=== PATIENT | male | born 1975 | race Caucasian/White ===

== ENCOUNTER 2019-03-25 10:01 | Emergency (ER) | payer MEDICAID ==
[~2019-03-25] VITALS: Wt 102.0 kg
--- NOTE | 2019-03-25 13:20 | ERD ---
ER Documentation Chief Complaint Chief Complaint SOB WITH INTERMITTENT CHEST PAIN FOR 1 WK. NO RELEIF WITH INHALER. NO N/V HPI 43-year-old male presents to the ED complaining of chest pain. Patient reports a one-month history of unprovoked, episodes of sharp, nonradiating midsternal chest pain with shortness of breath and sometimes palpitations. No accompanying nausea, vomiting or diaphoresis. Denies leg pain or swelling. No cough or hemoptysis. Episodes seem to be increasing in frequency recently. Currently asymptomatic. No abdominal pain or low back pain. Admits to increasing episodes of anxiety recently but denies depression or thoughts of self-harm. No headache or neck pain. No fevers or chills. ROS All systems reviewed and are negative except as per history of present illness. Medications Home Meds No Active Prescriptions or Reported Meds Allergies Allergies: Coded Allergies: No Known Allergy (Unverified , 03/25/19) PMhx/Soc History of Surgery: No Hx Neurological Disorder: No Hx Respiratory Disorders: No Hx Cardiac Disorders: No Hx Psychiatric Problems: No Hx Miscellaneous Medical Probl: No Hx Alcohol Use: No Hx Substance Use: No Hx Tobacco Use: No FmHx No coronary artery disease or sudden cardiac Physical Exam Vitals Vital Signs Date Temp Pulse Resp B/P (MAP) Pulse Ox O2 O2 Flow FiO2 Time Delivery Rate 03/25/19 57 12 101/57 97 Room Air 19:30 (72) 03/25/19 68 15 120/62 100 Room Air 19:00 (81) 03/25/19 50 12 108/69 98 Room Air 18:00 (82) 03/25/19 54 18 101/56 98 Room Air 17:00 (71) 03/25/19 98.5 58 20 102/75 95 Room Air 15:00 (84) 03/25/19 Nasal 13:37 Cannula 03/25/19 98.5 74 20 112/61 98 10:04 (78) Physical Exam Const: Anxious, no acute distress Head: Atraumatic Eyes: Normal Conjunctiva ENT: Normal External Ears, Nose and Mouth. Neck: Full range of motion. No JVD. No goiter. Resp: Breath sounds are equal and clear to auscultation bilaterally Cardio: Regular rate and rhythm, no murmurs. Chest Wall: Nontender Abd: Soft, non tender, non distended. No rebound or guarding. No masses or abnormal pulsations. Normal bowel sounds Skin: No petechiae or rashes Back: No midline or flank tenderness Ext: No cyanosis, or edema. Pulses 4+ in all extremities. Neur: Awake and alert. No focal deficit Psych: Anxious but not depressed. Result Diagram: 03/25/19 1338 03/25/19 1338 Results 24 hrs Laboratory Tests Test 03/25/19 13:38 03/25/19 18:14 White Blood Count 6.2 10^3/ul Red Blood Count 4.53 10^6/ul Hemoglobin 14.2 g/dl Hematocrit 39.4 % Mean Corpuscular Volume 87.0 fl Mean Corpuscular Hemoglobin 31.3 pg Mean Corpuscular Hemoglobin Concent 36.0 g/dl Red Cell Distribution Width 12.7 % Platelet Count 186 10^3/UL Mean Platelet Volume 12.5 fl Immature Granulocytes % 0.300 % Neutrophils % 59.6 % Lymphocytes % 28.0 % Monocytes % 9.2 % Eosinophils % 2.6 % Basophils % 0.3 % Nucleated Red Blood Cells % 0.0 /100WBC Immature Granulocytes # 0.020 10^3/ul Neutrophils # 3.7 10^3/ul Lymphocytes # 1.7 10^3/ul Monocytes # 0.6 10^3/ul Eosinophils # 0.2 10^3/ul Basophils # 0.0 10^3/ul Nucleated Red Blood Cells # 0.0 10^3/ul D-Dimer 252.00 ng/ml D-Dimer Comment Sodium Level 144 mmol/L Potassium Level 4.1 mmol/L Chloride Level 109 mmol/L Carbon Dioxide Level 23 mmol/L Anion Gap 12 Blood Urea Nitrogen 19 mg/dl Creatinine 1.07 mg/dl Est Glomerular Filtrat Rate mL/min > 60 mL/min Glucose Level 90 mg/dl Calcium Level 9.5 mg/dl Troponin I < 0.012 ng/ml < 0.012 ng/ml Current Medications Medications Dose Sig/Denisa Start Time Status Last (Trade) Ordered Route PRN Stop Time Admin Dose Reason Admin Aspirin 325 mg ONCE STAT 03/25/19 DC 03/25/19 (Aspirin) PO 13:32 13:49 03/25/19 13:34 25 tab STK-MED 03/25/19 DC Nitroglycerin ONCE .ROUTE 13:45 03/25/19 13:46 (Nitroglyceri n (Sl Tab) 0.4 Mg) 1 tab ONCE STAT 03/25/19 DC 03/25/19 Nitroglycerin SL 13:46 13:50 03/25/19 13:50 (Nitroglyceri n (Sl Tab) 0.4 Mg) Procedures/MDM DOCUMENTS REVIEWED: ED nurse, no prior records EKG: Time: 10:08 Sinus rhythm. Ventricular rate 72. Normal [place] QRS. ST chidi nges consistent with early repolarization. Normal axis. No ectopy. My Interpretation EKG: Time: 13:88. Sinus rhythm. Ventricular rate 52. Normal [place] QRS. ST changes consistent with early repolarization. Normal axis. No ectopy. My Interpretation IMAGING: Chest AP portable. Cardiac silhouette is normal. The costophrenic angles are clear. No effusions or infiltrates. No abnormalities of the bony thorax. My interpretation. Observation Note: Time: 5 hours Family Hx: No Hypertension Evaluation: Multiple exams showed improving symptoms and no evidence of acute coronary syndrome MEDICAL DECISION MAKIN-year-old male with no significant prior medical history presents to the ED complaining of chest pain. CBC to evaluate for leukocytosis and anemia is unremarkable. Chemistry is negative for electrolyte abnormalities, renal insufficiency or hyperglycemia. Troponin x2 is negative. EKG x2 significant for findings consistent with early repolarization but no acute ischemia or dysrhythmia. Chest x-ray is negative for infiltrate or effusion. The patient presents with chest pain and I considered pulmonary embolism, aortic dissection, pneumothorax among other diagnoses. Patient also admits to anxiety which may be a contributing or causative factor. Evaluation f or acute coronary syndrome was performed. The HEART score was utilized for risk stratification and found < 3. Repeat EKG and troponin @ 3 hours were unchanged. Based on this evaluation the patients risk of major adverse cardiac events is <1%. D-dimer is negative and patient at low risk for pulmonary embolism. Shared decision making occurred with patient and the decision has been made to discharge the patient for outpatient evaluation and functional study within 72 hours. Stable for discharge with precautionary instructions and outpatient follow-up as counseled. Counseled patient and family regarding diagnosis, diagnostic results and need for follow-up. Understands return to the ED if symptoms recur, worsen or any other concerns. Departure Diagnosis: Primary Impression: Chest pain Chest pain type: unspecified Qualified Codes: R07.9 - Chest pain, unspecified Additional Impression: Anxiety Condition: Stable ANAM ROY MD Mar 25, 2019 13:20
[2019-03-25] MEDS ORDERED: ASPIRIN 325 MG TAB PO STA (13:32)
[2019-03-25] MEDS ORDERED: NITROGLYCERIN (SL) 0.4 MG TAB ONE (13:45)
[2019-03-25] MEDS ORDERED: NITROGLYCERIN (SL) 0.4 MG TAB SL STA (13:46)
[2019-03-25 19:30] VITALS: BP 101/57; PULSE 57; RESP 12
== END 2019-03-25 19:43 | disposition home or self-care (01) ==
LOC: E/R 10:01
DX: R07.9 Chest pain, unspecified (principal); F41.9 Anxiety disorder, unspecified
CPT/HCPCS: 36415; 71045; 80048; 82550; 82553; 84484; 85025; 85378; 93005; Z7502; Z7610